=== PATIENT | male | born 1955 | race Caucasian/White ===

== ENCOUNTER 2021-04-23 22:43 | Emergency (ER) | payer MEDICAID ==
[~2021-04-23] VITALS: Ht 170.2 cm; Wt 82.0 kg
[~2021-04-23 22:43] MED LIST: ASPI-1497; LIP40 PO; LOSA25TA3; METF-414; NAPR-681; TOPXL5
[2021-04-23 22:46] VITALS: BP 169/86
[2021-04-23] MEDS ORDERED: LORATADINE 10MG TABLET PO SCH (23:15)
[2021-04-23] MEDS ORDERED: FAMO20TA8 MT (23:25)
[2021-04-23] MEDS ORDERED: LORA10TA7 MT (23:25)
== END 2021-04-24 01:09 | disposition home or self-care (01) ==
LOC: ER 22:43
DX: L50.9 Urticaria, unspecified (principal); E11.9 Type 2 diabetes mellitus without complications; Z79.899 Other long term (current) drug therapy; Z88.0 Allergy status to penicillin
CPT/HCPCS: 99282

== ENCOUNTER 2023-06-20 00:52 | Emergency (ER) | payer MEDICAID ==
[~2023-06-20] VITALS: Ht 170.2 cm; Wt 79.6 kg
[~2023-06-20 00:52] MED LIST changes: +FAMO20TA8 MT; +LORA10TA7 MT; +LOSA-412; -LOSA25TA3
[2023-06-20 02:07] VITALS: BP 119/71; O2SAT 99
[2023-06-20 03:23] LABS: BASOPHILS % 0.9 % (0.0-2.0); HEMATOCRIT. 42.7 % (42.0-52.0); HEMOGLOBIN. 14.7 g/dL (14.0-18.0); LYMPHOCYTES % 16.9 % (20.0-50.0); MEAN CORPUSCULAR HEMOGLOBIN 30.1 pg (28.0-32.0); MEAN CORPUSCULAR HGB CONC 34.4 g/dL (31.0-37.0); MEAN CORPUSCULAR VOLUME 87.4 fL (80.0-94.0); MEAN PLATELET VOLUME 9.9 fl (7.4-10.4); MONOCYTES % 5.1 % (2.0-8.0); NEUTROPHILS % 73.1 % (40.0-76.0); PLATELET 181 x1000/uL (130-400); RED BLOOD CELL COUNT 4.88 mill/uL (4.7-6.1); RED CELL DISTRIBUTION WIDTH 13.4 % (11.6-14.6); WHITE BLOOD COUNT 10.2 x1000/uL (4.5-11.0)
[2023-06-20 03:32] LABS: CLARITY URINE CLEAR (CLEAR); COLOR URINE YELLOW (YELLOW); GLUCOSE URINE 1+ (NEGATIVE); KETONES URINE NEGATIVE (NEGATIVE); LEUKOCYTE ESTERASE URINE NEGATIVE (NEGATIVE); NITRITE URINE NEGATIVE (NEGATIVE); OCCULT BLOOD URINE NEGATIVE (NEGATIVE); PROTEIN URINE NEGATIVE (NEGATIVE); SPECIFIC GRAVITY URINE 1.011 (1.005-1.030); UROBILINOGEN URINE 0.2 E.U./dL (0.2-1.0)
[2023-06-20 03:39] LABS: ACETAMINOPHEN < 2 ug/mL (10-30); ALANINE AMINOTRANSFERASE 16 IU/L (10-49); ALBUMIN 4.1 g/dL (3.2-4.8); ASPARTATE AMINOTRANSFERASE 16 IU/L (<34); BILIRUBIN TOTAL 0.6 mg/dL (0.1-1.0); CALCIUM 9.7 mg/dL (8.7-10.4); CARBON DIOXIDE 28 mEq/L (21-32); CHLORIDE 102 mEq/L (98-107); CREATININE 0.9 mg/dL (0.6-1.3); GLUCOSE 228 mg/dL (70-105); POTASSIUM 4.4 mEq/L (3.5-5.1); PROTEIN TOTAL 7.4 g/dL (6.0-8.3); SODIUM 134 mEq/L (136-145); UREA NITROGEN BLOOD 12 mg/dL (9-23)
[2023-06-20 03:44] LABS: *AMPHETAMINES SCREEN URINE NEGATIVE (NEGATIVE); *BARBITURATES SCREEN URINE NEGATIVE (NEGATIVE); *BENZODIAZEPINES SCREEN URINE NEGATIVE (NEGATIVE); *COCAINE SCREEN URINE NEGATIVE (NEGATIVE); CANNABINOID URINE SCREEN NEGATIVE (NEGATIVE); ECSTASY MDMA SCREEN URINE NEGATIVE (NEGATIVE); METHADONE URINE SCREEN Neg (NEGATIVE); OPIATES URINE SCREEN NEGATIVE (NEGATIVE); PHENCYCLIDINE URINE SCREEN NEGATIVE (NEGATIVE)
[2023-06-20 03:50] LABS: BACTERIA URINE NONE SEEN; RBC URINE NONE SEEN /hpf (0-2); SQUAMOUS EPITHELIAL CELL URINE NONE SEEN /lpf (RARE/1+); WBC URINE NONE SEEN /hpf (0-2)
[2023-06-20] MEDS ORDERED: ONDANSETRON 4MG ODT PO ONE (04:00)
[2023-06-20] MEDS ORDERED: DIPH25TA62 MT (04:03)
[2023-06-20] MEDS ORDERED: EPIN0.3P3 IM (04:03)
[2023-06-20] MEDS ORDERED: ONDA4TAB50 MT (04:03)
[2023-06-20 04:13] VITALS: PULSE 70; RESP 20; TEMP 98.6
[2023-06-20 04:13] LABS: ETHANOL BLOOD < 10 mg/dL (<10)
== END 2023-06-20 04:19 | disposition home or self-care (01) ==
LOC: ER 00:52
DX: T78.40XA Allergy, unspecified, initial encounter (principal); E11.9 Type 2 diabetes mellitus without complications; Z00.00 Encounter for general adult medical examination without abnormal findings; Z88.0 Allergy status to penicillin; Z79.82 Long term (current) use of aspirin; X58.XXXA Exposure to other specified factors, initial encounter
CPT/HCPCS: 80053; 80305; 81003; 80307; 80329; 80320; 85025; 36415; 99283; Q0162; G0480

== ENCOUNTER 2023-07-03 15:05 | Emergency (ER) | payer MEDICAID, OTHER ==
[~2023-07-03] VITALS: Ht 172.7 cm; Wt 78.0 kg
[~2023-07-03 15:05] MED LIST changes: +DIPH25TA62 MT; +EPIN0.3P3 IM; +ONDA4TAB50 MT
[2023-07-03 15:18] VITALS: O2SAT 99
[2023-07-03] MEDS ORDERED: BENZ200C52 MT (16:56)
[2023-07-03 17:12] VITALS: BP 142/77; PULSE 97; RESP 18; TEMP 98.2
== END 2023-07-03 17:14 | disposition home or self-care (01) ==
LOC: ER 15:05
DX: J06.9 Acute upper respiratory infection, unspecified (principal); E11.9 Type 2 diabetes mellitus without complications; Z88.0 Allergy status to penicillin; Z20.822 Contact with and (suspected) exposure to COVID-19
CPT/HCPCS: 99283; 87426; 87804 ×2; C9803

== ENCOUNTER 2024-04-22 04:01 | Emergency (ER) | payer MEDICAID ==
[~2024-04-22] VITALS: Ht 167.6 cm; Wt 80.0 kg
[~2024-04-22 04:01] MED LIST changes: +BENZ200C52 MT
[2024-04-22 04:11] VITALS: BP 143/86; PULSE 98; RESP 18; TEMP 98.4; O2SAT 99
[2024-04-22] MEDS: FAMOTIDINE 20MG/2ML VIAL IV ONE (05:31)
[2024-04-22] MEDS ORDERED: DIPH25CA83 MT (06:03)
[2024-04-22] MEDS: FAMOTIDINE 20MG TABLET PO ONE (06:08)
[2024-04-22] MEDS: DEXAMETHASONE 10 MG/ML VIAL IM ONE (06:08)
== END 2024-04-22 06:09 | disposition home or self-care (01) ==
LOC: ER 04:01
DX: L50.0 Allergic urticaria (principal); E11.9 Type 2 diabetes mellitus without complications; Z88.8 Allergy status to other drugs, medicaments and biological substances; Z88.0 Allergy status to penicillin; Z79.899 Other long term (current) drug therapy
CPT/HCPCS: 99283; 96372; J1100

== ENCOUNTER 2024-04-29 19:19 | Emergency (ER) | payer MEDICAID ==
[~2024-04-29] VITALS: Ht 165.1 cm; Wt 81.0 kg
[~2024-04-29 19:19] MED LIST changes: +DIPH25CA83 MT
[2024-04-29 19:32] VITALS: O2SAT 99
[2024-04-29 21:05] VITALS: BP 132/70; PULSE 87; RESP 18; TEMP 36.78072; O2SAT 99
[2024-04-29] MEDS ORDERED: OFLO5DRO4 LEFT EAR (21:48)
== END 2024-04-29 21:09 | disposition home or self-care (01) ==
LOC: ER 19:19
DX: T16.2XXA Foreign body in left ear, initial encounter (principal); E11.9 Type 2 diabetes mellitus without complications; Z88.0 Allergy status to penicillin; Z79.899 Other long term (current) drug therapy; W44.9XXA Unspecified foreign body entering into or through a natural orifice, initial encounter; Y93.89 Activity, other specified; Y92.89 Other specified places as the place of occurrence of the external cause; Y99.8 Other external cause status
CPT/HCPCS: 69200; 99283; 99284